=== PATIENT | female | born 1990 | race Caucasian/White ===

== ENCOUNTER 2021-01-03 18:35 | Emergency (ER) | payer OTHER, MEDICAID, SELFPAY ==
[2021-01-03 18:39] VITALS: BP 116/68; PULSE 64; RESP 16; TEMP 36.4; O2SAT 99; BMI 22.0
--- NOTE | 2021-01-03 18:40 | DI.CT.S_ITS ---
PROCEDURE: CT HEAD/BRAIN WO CON INDICATIONS: Trauma, pain TECHNIQUE: Noncontrast 4.5 mm thick angled axial sections acquired from the foramen magnum to the vertex, with coronal and sagittal reformats. For radiation dose reduction, the following was used: automated exposure control, adjustment of mA and/or kV according to patient size. COMPARISON: None. FINDINGS: Image quality: Excellent. CSF spaces: Basal cisterns are patent. No extra-axial fluid collections. Ventricles are normal in size and shape. Incidental cavum septum pellucidum et vergae. Brain: No midline shift. No intracranial masses or hemorrhage. Drake-white matter interface is normal. Midline structures unremarkable. No evidence of Chiari malformation Skull and face: Calvarium and visualized facial bones are intact, without suspicious lesions. Both middle ears are well aerated Sinuses: Visualized sinuses and mastoids are clear. IMPRESSION: 1. Unremarkable CT brain without intracranial hemorrhage or mass effect. 2. If there is clinical concern for basilar skull fracture, consider follow-up temporal bone CT. Approved by: Jeyson Painting M.D. on 01/03/2021 at 18:08
--- NOTE | 2021-01-03 20:23 | DI.CT.S_ITS ---
PROCEDURE: CT MASTOID TEMPORAL INDICATIONS: head injury with hemotympanum COMPARISON: None. TECHNIQUE: Noncontrast 0.6 mm thick direct axial and coronal sections acquired through each temporal bone separately. FINDINGS: Image quality: Excellent. RIGHT: External auditory canal: Canal has a normal appearance. Middle ear: The middle ear structures, including the ossicles and tympanic membrane, appear normal. No abnormal fluid or soft tissue density. Inner ear: Inner ear is normally formed and appears unremarkable. Facial nerve appears normal throughout is course. Mastoids: Mastoid air cells are clear. LEFT: External auditory canal: Canal has a normal appearance. Middle ear: The middle ear structures, including the ossicles and tympanic membrane, appear normal. No abnormal fluid or soft tissue density. Inner ear: Inner ear is normally formed and appears unremarkable. Facial nerve appears normal throughout its course. Mastoids: Mastoid air cells are clear. MISCELLANEOUS: Visualized surrounding bones appear unremarkable. Visualized intracranial structures, including the cerebellopontine angle cisterns, appear normal. Bilateral TMJ degenerative change, left greater than right. IMPRESSION: No evidence to base of skull fracture. Incidental note made of bilateral TMJ degenerative change, left greater than right. Dictated by: Christopher Callahan M.D. on 01/03/2021 at 21:26 Approved by: Christopher Callahan M.D. on 01/03/2021 at 21:30
[2021-01-03 21:23] VITALS: BP 112/70; PULSE 61; RESP 17; O2SAT 100
--- NOTE | 2021-01-04 07:20 | ED.HEATRA ---
HPI - Head Injury General Chief complaint: Head Injury Stated complaint: Needs CT Scan, Liquid in Left Ear, Concussion Time Seen by Provider: 01/03/21 18:40 Source: patient Mode of arrival: Ambulatory History of Present Illness HPI Narrative: 30F nonsmoker without chronic medical history presents for evaluation of head injury. Two days ago she struck her head on the heavy door of a vehicle and did not lose consciousness but since then has had headache, felt a bit groggy and nauseated. She does not take any blood thinners. She denies any numbness, tingling or weakness. She was seen and evaluated out in the [facility] and it was noted that she may have some blood behind her ear drum and was sent here for evaluation. She has had no syncope and is acting at her baseline per significant other at the bedside Related Data Home Medications Medication Instructions Recorded Confirmed No Known Home Medications 01/03/21 01/03/21 Allergies Allergy/AdvReac Type Severity Reaction Status Date / Time No Known Drug Allergies Allergy Unverified 01/03/21 18:43 Review of Systems Review of Systems Narrative: GENERAL: Denies chills, fatigue, malaise, fever, sweats. HEENT: Denies sinus pain, ear pain, sore throat, difficulty swallowing, dizziness. RESPIRATORY: Denies dyspnea, cough, wheezing, hemoptysis, sputum. CARDIOVASCULAR: Denies chest pain, palpitations, orthopnea, edema, GASTROINTESTINAL: Denies nausea, vomiting, abdominal pain, diarrhea, constipation, melena. : Denies dysuria, frequency, incontinence, hematuria, urinary retention. MUSCULOSKELETAL: denies weakness, joint pain, or bony pain SKIN: Denies rash, skin lesions, or other NEUROLOGIC: Denies weakness, headache, numbness, change in speech, confusion, seizures, incoordination. PSYCHIATRIC: No concerning psychosocial issues. 12 point review of systems is negative except for those stated above Patient History Social History Smoking Status: Never smoker Smoking Status: Never smoker alcohol intake frequency: a few times a week Substance Use Type: marijuana Exam Narrative Exam Narrative: GENERAL: [30] year old patient appears stated age. Well-developed patient, in mild distress. GCS 15 HEAD: Atraumatic. Normocephalic. EYES: Pupils equal round and reactive. Extraocular motions intact. No scleral icterus. No injection or drainage. ENT: Nose without bleeding, purulent drainage. Throat without erythema, tonsillar hypertrophy or exudate. Airway patent. Minimal hemo to Madam on the right side, no bulging, no ruptured tympanic membrane NECK: Trachea midline. Non tender CARDIOVASCULAR: Regular rate and rhythm without murmurs, gallops, or rubs. RESPIRATORY: Clear to auscultation. Breath sounds equal bilaterally. No wheezes, rales, or rhonchi. GASTROINTESTINAL: Abdomen soft, non-tender, nondistended. EXTREMITIES: No edema or joint tenderness. BACK: Nontender without deformity or crepitance. No flank tenderness. NEURO: AOx3. SKIN: No rash or erythema of visible areas Initial Vital Signs Initial Vital Signs: Vital Signs Temperature 97.6 F 01/03/21 18:39 Pulse Rate 64 01/03/21 18:39 Respiratory Rate 16 01/03/21 18:39 Blood Pressure 116/68 01/03/21 18:39 Pulse Oximetry 99 01/03/21 18:39 MDM - Head Injury Imaging Data CT scan - head: Radiologist's Impression: Yeimy Carrero??30??F??1990 ? Allergy/Adv: No Known Drug Allergies (More??) Close Head/Mastoid CT (Signed) Christopher Callahan - 01/03/[address] (Signed) Jeyson Painting - 01/03/21 Launch?[place] [address] CT Scan Report Signed Patient: Yeimy Carrero MR#: [id number] : 1990 Acct:[id number] Age/Sex: 30 / F Date of Service: 01/03/21 Loc: ED Accession Number: [id number] ?? Procedure: CT mastoid temporal Ordering Provider: Reji Bradley D.O. PROCEDURE:? CT MASTOID TEMPORAL ? INDICATIONS:? head injury with hemotympanum ? COMPARISON:? None. ? TECHNIQUE:? Noncontrast 0.6 mm thick direct axial and coronal sections acquired through each temporal bone separately.? ? ? FINDINGS:? Image quality:? Excellent.? ? RIGHT:? External auditory canal:? Canal has a normal appearance.? ? Middle ear:? The middle ear structures, including the ossicles and tympanic membrane, appear normal.? No abnormal fluid or soft tissue density.? ? Inner ear:? Inner ear is normally formed and appears unremarkable.? Facial nerve appears normal throughout is course.? ? Mastoids:? Mastoid air cells are clear.? ? ? LEFT:? External auditory canal:? Canal has a normal appearance.? ? Middle ear:? The middle ear structures, including the ossicles and tympanic membrane, appear normal.? No abnormal fluid or soft tissue density.? ? Inner ear:? Inner ear is normally formed and appears unremarkable.? Facial nerve appears normal throughout its course.? ? Mastoids:? Mastoid air cells are clear.? ? ? MISCELLANEOUS:? Visualized surrounding bones appear unremarkable.? Visualized intracranial structures, including the cerebellopontine angle cisterns, appear normal.? Bilateral TMJ degenerative change, left greater than right.? ? IMPRESSION:? No evidence to base of skull fracture. Incidental note made of bilateral TMJ degenerative change, left greater than right.? ? Dictated by: Christopher Callahan M.D. on 01/03/2021 at 21:26 ? ? Approved by: Christopher Callahan M.D. on 01/03/2021 at 21:30? [place] [address] CT Scan Report Signed Patient: Yeimy Carrero MR#: [id number] : 1990 Acct:[id number] Age/Sex: 30 / F Date of Service: 01/03/21 Loc: ED Accession Number: [id number] ?? Procedure: CT head/brain wo con Ordering Provider: Sloane Brooks MD PROCEDURE:? CT HEAD/BRAIN WO CON ? INDICATIONS:? Trauma, pain ? TECHNIQUE:? Noncontrast 4.5 mm thick angled axial sections acquired from the foramen magnum to the vertex, with coronal and sagittal reformats.? For radiation dose reduction, the following was used:? automated exposure control, adjustment of mA and/or kV according to patient size.? ? COMPARISON:? None. ? FINDINGS:? Image quality:? Excellent.? ? CSF spaces:? Basal cisterns are patent.? No extra-axial fluid collections.? Ventricles are normal in size and shape.? Incidental cavum septum pellucidum et vergae. ? Brain:? No midline shift.? No intracranial masses or hemorrhage.? Drake-white matter interface is normal.? Midline structures unremarkable.? No evidence of Chiari malformation ? Skull and face:? Calvarium and visualized facial bones are intact, without suspicious lesions.? Both middle ears are well aerated ? Sinuses:? Visualized sinuses and mastoids are clear.? ? IMPRESSION:? ? 1. Unremarkable CT brain without intracranial hemorrhage or mass effect. 2. If there is clinical concern for basilar skull fracture, consider follow-up temporal bone CT. ? Approved by: Jeyson Painting M.D. on 01/03/2021 at 18:08? [facility] Narrative Medical decision making narrative: Very well-appearing 30-year-old female with minor head injury and typical concussion syndrome type symptoms presents for evaluation at the request of providers near her home. Head CT and temporal CT are unremarkable and show no sign of skull fracture, contusion or intracranial hemorrhage. Her physical exam is otherwise very reassuring. Return precautions given and questions answered to their apparent satisfaction Discharge Plan Departure Patient Disposition: Home Clinical Impression: Postconcussion syndrome Hemotympanum Qualifiers: Laterality: right Qualified Code(s): H74.8X1 - Other specified disorders of right middle ear and mastoid Instructions: Concussion Activity Restrictions/Additional Instructions: *You have been diagnosed with [post concussive symptoms. No evidence of CT head or temporal bone ] *What to do: *Please continue to take your regular medications as directed. [ ] New medication prescriptions sent to your pharmacy: [ ] [ ] New medication written as a paper prescription [ ] No new medications given *Please follow up with your primary care provider in 2-3 days, call for an appointment. Let them know you were seen in the Emergency Department and that we ask that you be seen in follow up. We will electronically transmit a record of today's note if your PCP is in our system *If you do not have a primary care provider please contact the [facility] Resource line at [phone]. They will ask some questions about your medical history and help get you set up with a doctor in the community. *Return to Emergency Department if you should have any new, worsening or concerning symptoms, such as [fever greater than 101 F, shaking chills, worsening pain, persistent vomiting or other bothersome symptoms] Prescriptions: No Action No Known Home Medications RF: 0 Referrals: Victoria Espinoza, [Primary Care Provider] -
== END 2021-01-03 21:42 | disposition home or self-care (01) ==
PROVIDERS: Emergency Provider Emergency Medicine; PCP Family Medicine
DX: F07.81 Postconcussional syndrome (principal); H74.8X1 Other specified disorders of right middle ear and mastoid
CPT/HCPCS: 70450; 70480; 99283; 99284

== ENCOUNTER 2021-05-14 18:04 | Emergency (ER) | payer OTHER, MEDICAID, SELFPAY ==
[2021-05-14 18:09] VITALS: BP 118/77; PULSE 75; RESP 22; TEMP 36.7; O2SAT 97
[2021-05-14 19:55] LABS: Bacteria Urine Moderate (10-30); Culture Indicated Urine Cult Not Indicated; RBC Urine 5-10/HPF (0-5/HPF); Squamous Epithelial Cell Urine 5-10 /HPF (0-5/HPF); WBC Urine 0-1/HPF (0-5/HPF)
== END 2021-05-14 20:35 | disposition left against medical advice (07) ==
PROVIDERS: Emergency Provider Emergency Medicine; PCP Family Medicine
DX: N93.9 Abnormal uterine and vaginal bleeding, unspecified (principal); R10.9 Unspecified abdominal pain
CPT/HCPCS: 81003; 81015; 81025; 99282